=== PATIENT | male | born 1955 | race Caucasian/White ===

== ENCOUNTER → 2017-02-09 11:57 | Day surgery (SDC) | payer BC ==
[~2017-02-09 11:57] MED LIST: Bacitracin OINTMENT* 1 TUBE ONE; Bupivacaine 0.5% W/EPI SDV* 30 ML VIAL ONE; Dexamethasone IV* 4 MG/ML 1 ML (4 MG) ONE; Famotidine IV* 10 MG/ML 2 ML (20 mg) ONE; KETAMINE HCL* 50 MG/ML 10 ML VIAL ONE; Ketorolac INJ* 30 MG/ML 1 ML VIAL ONE; Lidocaine 1% INJ* 10 MG/ML 30 ML SDV ONE; Lidocaine 2% JELLY* 6 ML JELLY TOPICAL ONE; Lidocaine 2% PF* 5 ML VIAL ONE; Metoclopramide TAB* 10 MG ONE; Midazolam* 1 MG/ML 2 ML VIAL (2 MG) ONE; Midazolam* 1 MG/ML 5 ML VIAL (5 MG) ONE; Ondansetron INJ* 2 MG/ML VIAL IV PRN; Ondansetron INJ* 2 MG/ML VIAL ONE; Propofol* 10 MG/ML 20 ML BTL IV PUSH ONE; ceFOXitin 2 GM IVPREMIX* 2 GM/50 ML BAG ONE; fentaNYL* 50 MCG/ML 2 ML VIAL (100 MCG VIAL) IV PRN; fentaNYL* 50 MCG/ML 2 ML VIAL (100 MCG VIAL) ONE; oxyCODONE/Acetamin 5/325 MG* TAB PO PRN
[2017-02-09 15:30] VITALS: BP 153/77
--- NOTE | 2017-02-10 17:38 | OP ---
DATE OF OPERATION: 02/09/17 - [facility] DATE OF : 55 SURGEON: Abundio Mtz MD TABLE TENDER: XIN Cedillo ANESTHESIOLOGIST: Dr. Morataya. ANESTHESIA: Local with monitored anesthesia care. PRE-OP DIAGNOSIS: Anal fistula. POST-OP DIAGNOSIS: Anal fistula. OPERATIVE PROCEDURE: Anal fistulotomy, simple. INDICATIONS: Mr. Tigre Rosenthal is a 62-year-old gentleman who had had a perianal abscess incised and drained and noted to have an anal fistula with seton suture placement. He has been doing well with the seton sutures in place for the resolution of the abscess. No further infection. He is now to undergo an anal fistulotomy, which is felt to be quite low, but the risk of incontinence , bleeding, infection, and anesthetic risk were all explained. ESTIMATED BLOOD LOSS: Minimal. SPECIMENS: None. WOUND CLASSIFICATION: IV. COMPLICATIONS: None. DRAINS: None. DESCRIPTION OF PROCEDURE: Written informed consent was obtained and the patient was taken to the operating room and was placed in the left lateral decubitus position with the right leg over the left leg. It was felt that this was an optimal position due to his morbid obesity and I had been able to visualize the fistula with seton suture in the office in this position. Sequential compression devices and a warming blanket were applied. Anesthesia was administered. The perineum, buttocks, and anus were prepped and draped in the usual sterile fashion. Time-out verification was completed. The anal fistula was at about the posterior midline to the 11 o'clock position and the seton suture was in place. 0.25% Marcaine with 1% lidocaine was infiltrated extensively in this area and a probe was passed through the fistulous tract, which was quite superficial and this was unroofed using a cautery. This did not appear to involve the sphincter muscle, most likely the scar tissue and I curetted the tract as well as used cautery for some hemostasis. Once this was complete and hemostasis was assured, lidocaine gel as well as some bacitracin ointment was placed and a 4x4 gauze was then placed over the fistulotomy site. The patient tolerated the procedure well and was taken to the recovery room in stable condition. [id number]/[facility] #: [id number] [facility]
== END | disposition home or self-care (01) ==
LOC: OR 11:57
PROVIDERS: ATTEND Surgery
DX: K60.3 Anal fistula (principal); I10 Essential (primary) hypertension; E78.5 Hyperlipidemia, unspecified; Z87.891 Personal history of nicotine dependence; E11.8 Type 2 diabetes mellitus with unspecified complications; Z79.84 Long term (current) use of oral hypoglycemic drugs; E66.01 Morbid (severe) obesity due to excess calories
CPT/HCPCS: A9270-GY; J0694; J1100; J1885; J2001; J2250; J2405; J2704; J3010

== ENCOUNTER 2022-03-27 09:33 | Inpatient (IN) ==
[2022-03-27 11:27] LABS: ABS Basophils 0.1 10^3/ul (0-0.2); ABS Eosinophils 0.1 10^3/ul (0-0.6); ABS Lymphocytes 1.4 10^3/ul (1.0-4.8); ABS Monocytes 0.8 10^3/ul (0-0.8); ABS Neutrophils 4.4 10^3/ul (1.5-7.7); Hematocrit 41 % (42-52); Hemoglobin 14.1 g/dL (14.0-18.0); Lymphocyte % 20.7 %; Mean Corpuscular HGB Conc 34 g/dL (31-36); Mean Corpuscular Hemoglobin 30 pg (27-31); Mean Corpuscular Volume 89 fL (80-94); Mean Platelet Volume 7.7 fL (7.4-10.4); Platelet Count 277 10^3/uL (150-450); Red Blood Count 4.65 10^6 /uL (4.18-5.48); Red Cell Distribution Width 13 % (10-15); White Blood Count 6.8 10^3/uL (3.5-10.8)
[2022-03-27 12:05] LABS: Calcium 9.6 mg/dL (8.6-10.3); Potassium 4.6 mmol/L (3.5-5.0); eGFR CKD-EPI 68.3 (>60)
[2022-03-27 12:30] LABS: Urine Appearance Clear; Urine Bacteria Absent (Absent); Urine Bilirubin Negative (Negative); Urine Blood 1+ (Negative); Urine Color Yellow; Urine Glucose Negative (Negative); Urine Ketones Trace (Negative); Urine Nitrite Negative (Negative); Urine Protein Negative (Negative); Urine Red Blood Cell Trace(0-2/hpf) (Absent); Urine Specific Gravity 1.015 (1.002-1.030); Urine Squamous Epithelial Cell Present (Absent); Urine Urobilinogen Negative (Negative); Urine White Blood Cell Trace(0-5/hpf) (Absent)
[2022-03-27 12:39] LABS: Urine Osmo 534 mOsm/kg (150-1150)
[2022-03-27 12:39] LABS: Osmolality Serum 260 mOsm/kg (275-295)
[2022-03-27] MEDS ORDERED: NS 0.9% 1000 ml BAG 1,000 ML IV SCH (14:00)
[2022-03-27] MEDS ORDERED: Dextrose 50% Syringe 50 ml 25 GM/50 ML SYRINGE IV PUSH PRN (14:21)
[2022-03-27 16:47] LABS: Magnesium 1.5 mg/dL (1.9-2.7)
[2022-03-27 16:52] LABS: Phosphorus 2.3 mg/dL (2.5-5.0)
[2022-03-27] MEDS: Aspirin EC 81 mg TAB.EC (enteric coated) PO SCH (20:48)
[2022-03-27] MEDS: Nystatin TOP POWDER 15 GM BTL TOPICAL SCH (20:50)
[2022-03-28 05:57] LABS: ABS Basophils 0.1 10^3/ul (0-0.2); ABS Eosinophils 0.2 10^3/ul (0-0.6); ABS Lymphocytes 1.5 10^3/ul (1.0-4.8); ABS Monocytes 0.8 10^3/ul (0-0.8); ABS Neutrophils 3.3 10^3/ul (1.5-7.7); Eosinophil % 2.6 %; Hematocrit 41 % (42-52); Hemoglobin 13.9 g/dL (14.0-18.0); Lymphocyte % 26.4 %; Mean Corpuscular HGB Conc 34 g/dL (31-36); Mean Corpuscular Hemoglobin 30 pg (27-31); Mean Corpuscular Volume 88 fL (80-94); Mean Platelet Volume 7.5 fL (7.4-10.4); Nucleated Red Blood Cells % 0.1; Platelet Count 263 10^3/uL (150-450); Red Blood Count 4.63 10^6 /uL (4.18-5.48); Red Cell Distribution Width 13 % (10-15); White Blood Count 5.8 10^3/uL (3.5-10.8)
[2022-03-28 06:26] LABS: CO2 Carbon Dioxide 21 mmol/L (22-32); Calcium 9.4 mg/dL (8.6-10.3); Chloride 94 mmol/L (101-111); Magnesium 1.7 mg/dL (1.9-2.7); Sodium 125 mmol/L (135-145)
[2022-03-28 06:27] LABS: Anion Gap 10 mmol/L (2-11)
[2022-03-28 06:32] LABS: Blood Urea Nitrogen 14 mg/dL (6-24); Glucose 112 mg/dL (70-100); eGFR CKD-EPI 65.6 (>60)
[2022-03-28] MEDS ORDERED: Magnesium Sulfate IV 3 GM in NS 0.9% 100 ml BAG 100 ML IVPB ONE (06:47)
[2022-03-28] MEDS ORDERED: Magnesium Sulfate 2 GM IV (Premix) IVPB ONE (07:30)
[2022-03-28] MEDS ORDERED: Magnesium Sulfate 1 GM IV 1 GM/100 ML BAG IV ONE (08:30)
[2022-03-28 09:09] LABS: Phosphorus 3.1 mg/dL (2.5-5.0); Potassium Redraw 4.7 mmol/L (3.5-5.0)
[2022-03-28] MEDS ORDERED: Morphine 2 MG/ML SYRINGE IV ONE (10:51)
[2022-03-28] MEDS: Calcium Carb (TUMS) 500 mg CHEW TAB PO SCH ×2 (11:03→21:04)
[2022-03-28] MEDS: Nystatin TOP POWDER 15 GM BTL TOPICAL SCH ×2 (11:04→20:50)
[2022-03-28 16:13] LABS: PSA Screening Total 1.293 ng/mL (0-4.000)
[2022-03-28] MEDS: Aspirin EC 81 mg TAB.EC (enteric coated) PO SCH (20:49)
[2022-03-28] MEDS: Sodium Citrate/Citric Acid LIQ 15 ML UDC PO SCH (21:05)
[2022-03-29 06:14] LABS: Calcium 9.4 mg/dL (8.6-10.3); Magnesium 2.1 mg/dL (1.9-2.7); Potassium 4.3 mmol/L (3.5-5.0); eGFR CKD-EPI 67.6 (>60)
[2022-03-29] MEDS: Calcium Carb (TUMS) 500 mg CHEW TAB PO SCH ×2 (09:36→20:32)
[2022-03-29] MEDS: Nystatin TOP POWDER 15 GM BTL TOPICAL SCH ×2 (09:36→20:33)
[2022-03-29] MEDS ORDERED: Polyethylene Glycol 3350 17 GM PACKET PO PRN (11:14)
[2022-03-29 17:37] LABS: Urine Appearance Clear; Urine Bilirubin Negative (Negative); Urine Blood Negative (Negative); Urine Color Yellow; Urine Glucose Negative (Negative); Urine Ketones Negative (Negative); Urine Nitrite Negative (Negative); Urine Protein Negative (Negative); Urine Specific Gravity 1.013 (1.002-1.030); Urine Urobilinogen Negative (Negative)
[2022-03-29] MEDS: Sodium Citrate/Citric Acid LIQ 15 ML UDC PO SCH (20:32)
[2022-03-29] MEDS: Aspirin EC 81 mg TAB.EC (enteric coated) PO SCH (20:32)
[2022-03-30 07:17] VITALS: BP 117/65
[2022-03-30] MEDS: Calcium Carb (TUMS) 500 mg CHEW TAB PO SCH (07:22)
[2022-03-30] MEDS: Nystatin TOP POWDER 15 GM BTL TOPICAL SCH (07:28)
[2022-03-30 09:41] LABS: Potassium 4.6 mmol/L (3.5-5.0); eGFR CKD-EPI 67.6 (>60)
== END 2022-03-30 12:55 | disposition home or self-care (01) | DRG 644 ==
LOC: ED 09:33 → EDHOLD 09:33 → MED 15:51
PROVIDERS: ADMIT Internal Medicine; ATTEND Internal Medicine